=== PATIENT | female | born 1985 | race American Indian/Alaskan Native ===

== ENCOUNTER 2017-05-06 10:29 | Emergency (ER) | payer OTHER ==
[2017-05-06 11:34] VITALS: BP 146/76
--- NOTE | 2017-05-06 14:13 | XRay Report ---
ROUTINE CHEST, TWO VIEWS: HISTORY: Dyspnea. The trachea, heart, mediastinal contour, lung mckeon and bony thorax are unremarkable. IMPRESSION: Unremarkable chest x-ray.
[2017-05-06] MEDS ORDERED: TORADOL IM ONE (14:34)
[2017-05-06] MEDS ORDERED: TESSALON PERLES PO ONE (14:34)
[2017-05-06] MEDS ORDERED: MUCINEX ER PO ONE (14:34)
--- NOTE | 2017-05-06 14:45 | Emergency Department Report ---
HPI - General Chief Complaint: Upper Respiratory Infection Time Seen by Provider: 05/06/17 13:27 - HPI HPI: The patient is a 32-year-old female who presents for evaluation of cough. The patient reports cough for the past 4 days, productive, moderate severity, associated with generalized myalgias for the past 3 days, aching in quality, moderate in severity, exacerbated with coughing, improved with rest. The patient denies fever, headache, neck pain, paresthesias, focal motor weakness, blurry vision, ear pain, tinnitus, chest pain, hemoptysis, dyspnea, abdominal pain, confusion or altered mental status, or recent URI or diarrhea. ED Past Medical Hx - Past Medical History Previous Medical History?: Yes Hx Hypertension: Yes (after childbirth. No meds) - Surgical History Past Surgical History?: Yes Additional Surgical History: HERNIA REPAIR. RIGHT EAR-KELOID REMOVED. C- SECTION - Social History Smoking Status: Never Smoker Substance Use Type: Non Opiate Pain, Other - Medications Home Medications: Home Medications Medication Instructions Recorded Confirmed Last Taken Type Ibuprofen [Motrin] 800 mg PO Q8HR PRN #15 tablet 05/06/17 Unknown Rx Ondansetron [Zofran TAB] 4 mg PO Q8HR PRN #15 tablet 05/06/17 Unknown Rx Oseltamivir [Tamiflu] 75 mg PO BID #10 cap 05/06/17 Unknown Rx Phenylephrine/Dm/Acetaminop/GG 20 ml PO Q4HR PRN #180 liquid 05/06/17 Unknown Rx [Mucinex Xlex-Hzt-Qetaluktpe Lq] ED Review of Systems ROS: Stated complaint: COLD SX Other details as noted in HPI Constitutional: denies: fever ENT: denies: throat or neck pain Respiratory: denies: cough, shortness of breath Cardiovascular: denies: chest pain Endocrine: denies unexplained weight loss or gain Gastrointestinal: denies: abdominal pain, nausea Genitourinary: denies: dysuria Musculoskeletal: reports generalized myalgias denies: leg swelling Skin: denies: rash Neurological: denies: headache Hematological/Lymphatic: denies: easy bleeding or easy bruising Psych: denies sadness or hopelessness Physical Exam - Physical Exam Vital Signs: Vital Signs 05/06/17 11:30 Temperature 98.8 F Pulse Rate 89 Respiratory 20 Rate Blood Pressure 146/76 O2 Sat by Pulse 100 Oximetry Physical Exam: General: well-nourished, well-developed, no acute distress Head: Normocephalic, atraumatic Eyes: normal sclera ENT: Mucous membranes are pink and moist, bilateral nasal congestion present Neck: trachea midline, neck supple, No neck stiffness, no cervical adenopathy Respiratory: Breath sounds equal bilaterally, no wheezing, rales, or rhonchi Cardio: S1 and S2 present, no murmurs, rubs, gallops, capillary refill is brisk Abdomen: Normoactive bowel sounds, soft abdomen, no rigidity, no guarding or rebound tenderness Chest WALL/Back: No tenderness to palpation of the chest wall, no CVA tenderness with percussion Musc: No pitting edema Skin: No rash Neuro: no facial drooping, normal speech Psych: Normal affect ED Course Vital Signs 05/06/17 11:30 Temperature 98.8 F Pulse Rate 89 Respiratory 20 Rate Blood Pressure 146/76 O2 Sat by Pulse 100 Oximetry ED Medical Decision Making - Medical Decision Making The patient was seen and examined by myself. The patient is placed on a monitoring manager and continuous pulse ox. On initial evaluation, the patient was found to be in no distress. Evaluation orders were placed. EKG was negative for findings suggestive of acute cardiac infarct. The patient is given Tessalon Perles for their cough and Mucinex for nasal congestion, and I'm dose of Toradol for her pain. Lab results were not concerning. Chest x-ray is negative for pulmonary vessel congestion, pleural effusion, focal consolidation , or other acute cardio pulmonary disease process. The patient was reevaluated and reported that their symptoms were markedly improved. On reexamination the patient is found to have normal respiratory rate and O2 sat on pulse oximetry, with no costal retractions or diminishment of breath sounds on auscultation. The patient is stable for discharge with outpatient follow-up. The patient is given follow-up and return instructions. The patient expressed understanding and agreed with the plan. The patient is discharged in stable condition. Critical care attestation.: If time is entered above; I have spent that time in minutes in the direct care of this critically ill patient, excluding procedure time. ED Disposition Clinical Impression: Influenza, Myalgia Acute bronchitis Qualifiers: Bronchitis organism: unspecified organism Qualified Code(s): J20.9 - Acute bronchitis, unspecified Disposition: DC-01 TO HOME OR SELFCARE Is pt being admited?: No Does the pt Need Aspirin: No Condition: Stable Instructions: Acute Bronchitis (ED), Influenza (ED), Musculoskeletal Pain (ED) Prescriptions: Ibuprofen [Motrin] 800 mg PO Q8HR PRN #15 tablet PRN Reason: Pain Ondansetron [Zofran TAB] 4 mg PO Q8HR PRN #15 tablet PRN Reason: Nausea Oseltamivir [Tamiflu] 75 mg PO BID #10 cap Phenylephrine/Dm/Acetaminop/GG [Mucinex Xkbb-Upx-Ezpllcmmld Lq] 20 ml PO Q4HR PRN #180 liquid PRN Reason: cough and sore throat Referrals: PRIMARY CARE, [Primary Care Provider] - 3-5 Days Time of Disposition: 14:40
== END 2017-05-06 14:58 | disposition home or self-care (01) ==
LOC: ED 10:29
DX: J11.1 Influenza due to unidentified influenza virus with other respiratory manifestations (principal); J20.9 Acute bronchitis, unspecified; I10 Essential (primary) hypertension
CPT/HCPCS: 71046; 96372; 99284; J1885

== ENCOUNTER 2017-09-01 07:03 | Emergency (ER) | payer OTHER ==
[2017-09-01 08:13] VITALS: BP 128/70
--- NOTE | 2017-09-01 11:54 | Emergency Department Report ---
ED ENT HPI - General Chief complaint: Earache Stated complaint: LEFT EAR PAIN Time Seen by Provider: 09/01/17 11:50 Source: patient Mode of arrival: Ambulatory Limitations: No Limitations - History of Present Illness Initial comments: 32-year-old female past medical history hypertension presents with complaint of 2 days of left-sided earache. Denies fevers chills nausea vomiting sore throat. Denies any discharge from left ear. States it started 2 days ago and it is aching persistently. Awake alert oriented 3 speaking in full sentences. Nontoxic. MD complaint: ear pain Onset/Timin -: days(s) Location: L ear Severity: moderate Severity scale (0 -10): 6 Quality: aching Consistency: constant Improves with: none - Related Data Previous Rx's Medication Instructions Recorded Last Taken Type Ibuprofen [Motrin] 800 mg PO Q8HR PRN #15 tablet 05/06/17 Unknown Rx Ondansetron [Zofran TAB] 4 mg PO Q8HR PRN #15 tablet 05/06/17 Unknown Rx Oseltamivir [Tamiflu] 75 mg PO BID #10 cap 05/06/17 Unknown Rx Phenylephrine/Dm/Acetaminop/GG 20 ml PO Q4HR PRN #180 liquid 05/06/17 Unknown Rx [Mucinex Ecef-Cgo-Hanhulllva Lq] Acetaminophen/Codeine [Tylenol 1 tab PO Q6H PRN #5 tab 09/01/17 Unknown Rx /Codeine # 3 tab] Amoxicillin [Trimox CAP] 500 mg PO Q8H #21 capsule 09/01/17 Unknown Rx Ibuprofen [Motrin] 800 mg PO Q8HR PRN #20 tablet 09/01/17 Unknown Rx Neomy/Polymyx B/Hc (Otic) Soln 4 drops OTIC TID #1 bottle 09/01/17 Unknown Rx [Cortisporin (Otic) Soln] Allergies Allergy/AdvReac Type Severity Reaction Status Date / Time No Known Allergies Allergy Verified 05/14/15 15:43 ED Dental HPI - General Chief complaint: Earache Stated complaint: LEFT EAR PAIN Time Seen by Provider: 09/01/17 11:50 Source: patient Mode of arrival: Ambulatory Limitations: No Limitations - Related Data Previous Rx's Medication Instructions Recorded Last Taken Type Ibuprofen [Motrin] 800 mg PO Q8HR PRN #15 tablet 05/06/17 Unknown Rx Ondansetron [Zofran TAB] 4 mg PO Q8HR PRN #15 tablet 05/06/17 Unknown Rx Oseltamivir [Tamiflu] 75 mg PO BID #10 cap 05/06/17 Unknown Rx Phenylephrine/Dm/Acetaminop/GG 20 ml PO Q4HR PRN #180 liquid 05/06/17 Unknown Rx [Mucinex Yond-Zmv-Isvncuiaar Lq] Acetaminophen/Codeine [Tylenol 1 tab PO Q6H PRN #5 tab 09/01/17 Unknown Rx /Codeine # 3 tab] Amoxicillin [Trimox CAP] 500 mg PO Q8H #21 capsule 09/01/17 Unknown Rx Ibuprofen [Motrin] 800 mg PO Q8HR PRN #20 tablet 09/01/17 Unknown Rx Neomy/Polymyx B/Hc (Otic) Soln 4 drops OTIC TID #1 bottle 09/01/17 Unknown Rx [Cortisporin (Otic) Soln] Allergies Allergy/AdvReac Type Severity Reaction Status Date / Time No Known Allergies Allergy Verified 05/14/15 15:43 ED Review of Systems ROS: Stated complaint: LEFT EAR PAIN Other details as noted in HPI Constitutional: denies: chills, fever Eyes: denies: eye pain, eye discharge, vision change ENT: denies: ear pain, throat pain Respiratory: denies: cough, shortness of breath, wheezing Cardiovascular: denies: chest pain, palpitations Endocrine: no symptoms reported Gastrointestinal: denies: abdominal pain, nausea, diarrhea Genitourinary: denies: urgency, dysuria, discharge Musculoskeletal: denies: back pain, joint swelling, arthralgia Skin: denies: rash, lesions Neurological: denies: headache, weakness, paresthesias Psychiatric: denies: anxiety, depression Hematological/Lymphatic: denies: easy bleeding, easy bruising ED Past Medical Hx - Past Medical History Previous Medical History?: Yes Hx Hypertension: Yes (after childbirth. No meds) - Surgical History Past Surgical History?: Yes Additional Surgical History: HERNIA REPAIR. RIGHT EAR-KELOID REMOVED. C- SECTION - Social History Smoking Status: Never Smoker Substance Use Type: Non Opiate Pain - Medications Home Medications: Home Medications Medication Instructions Recorded Confirmed Last Taken Type Ibuprofen [Motrin] 800 mg PO Q8HR PRN #15 tablet 05/06/17 Unknown Rx Ondansetron [Zofran TAB] 4 mg PO Q8HR PRN #15 tablet 05/06/17 Unknown Rx Oseltamivir [Tamiflu] 75 mg PO BID #10 cap 05/06/17 Unknown Rx Phenylephrine/Dm/Acetaminop/GG 20 ml PO Q4HR PRN #180 liquid 05/06/17 Unknown Rx [Mucinex Fnls-Bdl-Vdcwbgiqpm Lq] Acetaminophen/Codeine [Tylenol 1 tab PO Q6H PRN #5 tab 09/01/17 Unknown Rx /Codeine # 3 tab] Amoxicillin [Trimox CAP] 500 mg PO Q8H #21 capsule 09/01/17 Unknown Rx Ibuprofen [Motrin] 800 mg PO Q8HR PRN #20 tablet 09/01/17 Unknown Rx Neomy/Polymyx B/Hc (Otic) Soln 4 drops OTIC TID #1 bottle 09/01/17 Unknown Rx [Cortisporin (Otic) Soln] ED Physical Exam - General Limitations: No Limitations General appearance: alert, in no apparent distress - Head Head exam: Present: atraumatic, normocephalic - Eye Eye exam: Present: normal appearance, PERRL, EOMI - ENT ENT exam: Present: mucous membranes moist - Expanded ENT Exam Expanded TM/Canal exam: Erythema: Left TM (left tympanic membrane injection with surrounding erythema and inflammation left external ear canal. No mastoid tenderness on exam), Bulging: Left TM - Neck Neck exam: Present: normal inspection, full ROM - Respiratory Respiratory exam: Present: normal lung sounds bilaterally. Absent: respiratory distress - Cardiovascular Cardiovascular Exam: Present: regular rate, normal rhythm. Absent: systolic murmur, diastolic murmur, rubs, gallop - GI/Abdominal GI/Abdominal exam: Present: soft, normal bowel sounds - Extremities Exam Extremities exam: Present: normal inspection - Back Exam Back exam: Present: normal inspection - Neurological Exam Neurological exam: Present: alert, oriented X3 - Psychiatric Psychiatric exam: Present: normal affect, normal mood - Skin Skin exam: Present: warm, dry, intact, normal color. Absent: rash ED Course Vital Signs 09/01/17 08:10 Temperature 98.8 F Pulse Rate 80 Respiratory 20 Rate Blood Pressure 128/70 O2 Sat by Pulse 100 Oximetry ED Medical Decision Making - Medical Decision Making A/P: Left-sided otitis media, possible early otitis 1-course of amoxicillin 2-Motrin 800 when necessary, Tylenol 3 3-Cortisporin eardrops 4- follow up with primary care doctor Critical care attestation.: If time is entered above; I have spent that time in minutes in the direct care of this critically ill patient, excluding procedure time. ED Disposition Clinical Impression: Otitis media Qualifiers: Otitis media type: suppurative Chronicity: acute Laterality: left Recurrence: not specified as recurrent Spontaneous tympanic membrane rupture: without spontaneous rupture Qualified Code(s): H66.002 - Acute suppurative otitis media without spontaneous rupture of ear drum, left ear Disposition: TO HOME OR SELFCARE Is pt being admited?: No Does the pt Need Aspirin: No Condition: Stable Instructions: Otitis Media (ED) Prescriptions: Acetaminophen/Codeine [Tylenol /Codeine # 3 tab] 1 tab PO Q6H PRN #5 tab PRN Reason: Pain Amoxicillin [Trimox CAP] 500 mg PO Q8H #21 capsule Ibuprofen [Motrin] 800 mg PO Q8HR PRN #20 tablet PRN Reason: Pain Neomy/Polymyx B/Hc (Otic) Soln [Cortisporin (Otic) Soln] 4 drops OTIC TID #1 bottle Referrals: [facility] [Provider Group] - 3-5 Days Forms: Work/School Release Form(ED) Time of Disposition: 11:53
== END 2017-09-01 12:07 | disposition home or self-care (01) ==
LOC: ED 07:03
DX: H66.002 Acute suppurative otitis media without spontaneous rupture of ear drum, left ear (principal)
CPT/HCPCS: 99282

== ENCOUNTER 2018-11-01 12:58 | Emergency (ER) | payer MEDICAID, OTHER ==
--- NOTE | 2018-11-01 14:18 | Event Note ---
ED Screening Note Date of service: 11/01/18 Time: 14:14 ED Screening Note: 33 y/o female comes in for rt foot swelling and painfull time 1 week. This initial assessment/diagnostic orders/clinical plan/treatment(s) is/are subject to change based on patients health status, clinical progression and re- assessment by fellow clinical providers in the ED. Further treatment and workup at subsequent clinical providers discretion. Patient/guardian urged not to elope from the ED as their condition may be serious if not clinically assessed and managed. Initial orders include:
--- NOTE | 2018-11-01 15:37 | XRay Report ---
RIGHT FOOT 2 VIEWS INDICATION / CLINICAL INFORMATION: rt foot pain and swelling. COMPARISON: None available. FINDINGS: Mild soft tissue swelling is seen along the dorsal aspect of right foot without fracture or dislocati on. Signer Name: Fletcher Edouard MD Signed: 11/01/2018 3:33 PM Workstation Name: [id number]
--- NOTE | 2018-11-01 16:20 | Vascular Lab Report ---
DUPLEX DOPPLER LOWER EXTREMITY VEINS, RIGHT INDICATION: Right lower extremity pain and swelling for one week. TECHNIQUE: Duplex doppler imaging was performed through the veins of the right lower extremity using venous compression and other maneuvers. COMPARISON: No relevant prior imaging study available. FINDINGS: Right Common femoral vein: Negative. Right Superficial femoral vein: Negative. Right Popliteal vein: Negative. Right Calf veins: Negative. Additional findings: None.. IMPRESSION: No sonographic evidence for DVT in the right lower extremity. Signer Name: Deondre Lobato Jr, MD Signed: 11/01/2018 4:16 PM Workstation Name: [id number]
[2018-11-01 16:21] LABS: Basophils % (Auto) 0.4 % (0.0-1.8); Eosinophils # (Auto) 0.5 K/mm3 (0.0-0.4); Eosinophils % (Auto) 5.7 % (0.0-4.3); Hematocrit 37.8 % (30.3-42.9); Hemoglobin 13.2 gm/dl (10.1-14.3); Lymphocytes # (Auto) 1.8 K/mm3 (1.2-5.4); Lymphocytes % (Auto) 19.7 % (13.4-35.0); Mean Corpuscular HGB Conc 35 % (30-34); Mean Corpuscular Volume 86 fl (79-97); Monocytes # (Auto) 0.6 K/mm3 (0.0-0.8); Monocytes % (Auto) 6.2 % (0.0-7.3); Platelet Count 273 K/mm3 (140-440); Red Cell Distribution Width 14.5 % (13.2-15.2)
--- NOTE | 2018-11-01 16:26 | Emergency Department Report ---
<PATRICIO QUIROZ - Last Filed: 11/01/18 16:23> ED General Adult HPI - General Chief complaint: Extremity Problem,Nontraumatic Stated complaint: RT FOOT SWELLING/HBP Time Seen by Provider: 11/01/18 15:08 Source: patient Mode of arrival: Ambulatory Limitations: No Limitations - History of Present Illness Initial comments: Patient presents to the emergency department with a chief complaint of right foot swelling and slightly more strongly swelling 1 week. Patient denies any injury to that leg and denies a history of congestive heart failure or lymphedema. Patient denies any pain in the lower extremity. Patient denies chest pain, shortness of breath, or abdominal pain. Patient has tried elevation of the right lower extremity for relief of the swelling to no avail. Patient states she has a job that requires her to sit for hours at a time. -: Gradual Location: lower extremity Severity scale (0 -10): 0 Consistency: constant Improves with: none Worsens with: none Associated Symptoms: denies other symptoms Treatments Prior to Arrival: none - Related Data Previous Rx's Medication Instructions Recorded Last Taken Type predniSONE [Deltasone] 20 mg PO DAILY #5 tablet 11/01/18 Unknown Rx Allergies Allergy/AdvReac Type Severity Reaction Status Date / Time No Known Allergies Allergy Verified 05/14/15 15:43 ED Review of Systems Constitutional: denies: chills, fever Eyes: denies: eye pain, eye discharge, vision change ENT: denies: ear pain, throat pain Respiratory: denies: cough, shortness of breath, wheezing Cardiovascular: denies: chest pain, palpitations Endocrine: no symptoms reported Gastrointestinal: denies: abdominal pain, nausea, diarrhea Genitourinary: denies: urgency, dysuria, discharge Musculoskeletal: denies: back pain, joint swelling, arthralgia Skin: denies: rash, lesions Neurological: denies: headache, weakness, paresthesias Psychiatric: denies: anxiety, depression Hematological/Lymphatic: denies: easy bleeding, easy bruising ED Past Medical Hx - Past Medical History Hx Hypertension: Yes (after childbirth. No meds) - Surgical History Additional Surgical History: HERNIA REPAIR. RIGHT EAR-KELOID REMOVED. C- SECTION - Social History Smoking Status: Never Smoker Substance Use Type: None - Medications Home Medications: Home Medications Medication Instructions Recorded Confirmed Last Taken Type predniSONE [Deltasone] 20 mg PO DAILY #5 tablet 11/01/18 Unknown Rx ED Physical Exam - General Limitations: No Limitations General appearance: alert, in no apparent distress - Head Head exam: Present: atraumatic, normocephalic - Eye Eye exam: Present: normal appearance, PERRL - ENT ENT exam: Present: mucous membranes moist - Neck Neck exam: Present: normal inspection - Respiratory Respiratory exam: Present: normal lung sounds bilaterally. Absent: respiratory distress - Cardiovascular Cardiovascular Exam: Present: regular rate, normal rhythm. Absent: systolic murmur, diastolic murmur, rubs, gallop - GI/Abdominal GI/Abdominal exam: Present: soft, normal bowel sounds. Absent: distended, tenderness - Extremities Exam Extremities exam: Present: pedal edema, other (right lower extremity with mild edema and swelling ) - Back Exam Back exam: Present: normal inspection - Neurological Exam Neurological exam: Present: alert, oriented X3 - Psychiatric Psychiatric exam: Present: normal affect, normal mood - Skin Skin exam: Present: warm, dry, intact, normal color. Absent: rash ED Medical Decision Making - Lab Data Result diagrams: 11/01/18 16:06 ED Disposition Clinical Impression: Foot pain Disposition: DC-01 TO HOME OR SELFCARE Condition: Stable Instructions: Musculoskeletal Pain (ED) Additional Instructions: warm compresses meds as ordered diet and activity as tolerated follow up with pcp as we discussed referral below Referrals: BIGG EUCEDA MD [Staff Physician] - 3-5 Days <SANDIE LEE - Last Filed: 11/01/18 16:52> ED Review of Systems ROS: Stated complaint: RT FOOT SWELLING/HBP Other details as noted in HPI Comment: All other systems reviewed and negative ED Past Medical Hx - Family History Family history: no significant ED Course Vital Signs 11/01/18 14:03 Temperature 97.9 F Pulse Rate 73 Respiratory 16 Rate Blood Pressure 147/75 O2 Sat by Pulse 100 Oximetry ED Medical Decision Making - Lab Data Result diagrams: 11/01/18 16:06 11/01/18 16:06 - Medical Decision Making xray neg us neg labs noted fam hx gout no known trauma discussed findings with pt will dc home with pain medications and pcp follow up. verbalizes understanding of dc plan of care. Vital Signs 11/01/18 14:03 Temperature 97.9 F Pulse Rate 73 Respiratory 16 Rate Blood Pressure 147/75 O2 Sat by Pulse 100 Oximetry Labs 11/01/18 11/01/18 16:06 16:06 WBC 9.1 RBC 4.40 Hgb 13.2 Hct 37.8 MCV 86 MCH 30 MCHC 35 H RDW 14.5 Plt Count 273 Lymph % (Auto) 19.7 [place] % (Auto) 6.2 Eos % (Auto) 5.7 H Baso % (Auto) 0.4 Lymph # 1.8 [place] # 0.6 Eos # 0.5 H Baso # 0.0 Seg Neutrophils % 68.0 Seg Neutrophils # 6.2 Sodium 138 Potassium 3.8 Chloride 102.3 Carbon Dioxide 23 Anion Gap 17 BUN 9 Creatinine 0.7 Estimated GFR > 60 BUN/Creatinine Ratio 13 Glucose 85 Calcium 9.1 - Differential Diagnosis ro fx/ dvt Critical care attestation.: If time is entered above; I have spent that time in minutes in the direct care of this critically ill patient, excluding procedure time. ED Disposition Is pt being admited?: No Does the pt Need Aspirin: No Time of Disposition: 16:50
[2018-11-01 16:42] LABS: BUN/Creatinine Ratio 13; Blood Urea Nitrogen 9 mg/dL (7-17); Calcium 9.1 mg/dL (8.4-10.2); Hemolysis Index 14
[2018-11-01 17:10] VITALS: BP 145/83
== END 2018-11-01 17:11 | disposition home or self-care (01) ==
LOC: ED 12:58
DX: R60.0 Localized edema (principal); M79.671 Pain in right foot; R22.41 Localized swelling, mass and lump, right lower limb
CPT/HCPCS: 36415; 80048; 83880; 85025

== ENCOUNTER 2018-12-24 17:01 | Emergency (ER) | payer MEDICAID ==
--- NOTE | 2018-12-24 17:24 | Event Note ---
ED Screening Note Date of service: 12/24/18 Time: 17:21 ED Screening Note: This is a 33 y.o. F. that presents to the ER with diffuse abdominal pain for 5 days. Reports 2 episodes of vomiting. - diarrhea, fever, urinary frequency, dysuria, or urgency Took tums, gas x, and pepto bismol. PMH GERD and asthma This initial assessment/diagnostic orders/clinical plan/treatment(s) is/are subject to change based on patients health status, clinical progression and re- assessment by fellow clinical providers in the ED. Further treatment and workup at subsequent clinical providers discretion. Patient/guardian urged not to elope from the ED as their condition may be serious if not clinically assessed and managed. Initial orders include: Labs
[2018-12-24 18:00] LABS: HCG Qualitative,Urine Negative (Negative)
[2018-12-24] MEDS ORDERED: ONDANSETRON 4 MG ODT TAB PO ONE (18:03)
[2018-12-24] MEDS ORDERED: ALUM-MAG HYDROXIDE-SIMETHICONE 200-200-20MG/5ML ORAL LIQD 30 ML PO ONE (18:03)
[2018-12-24] MEDS ORDERED: LIDOCAINE VISCOUS 2% 15 ML ORAL LIQD PO ONE (18:03)
[2018-12-24] MEDS ORDERED: DICYCLOMINE 20 MG TAB PO ONE (18:03)
[2018-12-24 18:04] LABS: Bacteria,Urine 1+ /HPF (Negative); Bilirubin,Urine NEG (Negative); Blood,Urine SM (Negative); Color,Urine Yellow (Yellow); Mucus,Urine 3+ /HPF; Urobilinogen,Urine < 2.0 mg/dL (<2.0)
[2018-12-24 19:31] LABS: Hematocrit 42.2 % (30.3-42.9); Hemoglobin 13.6 gm/dl (10.1-14.3); Mean Corpuscular HGB Conc 32 % (30-34); Mean Corpuscular Volume 86 fl (79-97); Platelet Count 287 K/mm3 (140-440); Red Blood Count 4.92 M/mm3 (3.65-5.03); Red Cell Distribution Width 15.4 % (13.2-15.2)
[2018-12-24 19:54] LABS: Alanine Aminotransferase 10 units/L (7-56); Albumin 4.3 g/dL (3.9-5); BUN/Creatinine Ratio 15; Blood Urea Nitrogen 12 mg/dL (7-17); Hemolysis Index 9
[2018-12-24 20:03] LABS: Basophils % (Manual) 0 % (0.0-1.8); Eosinophils % (Manual) 0 % (0.0-4.3); Total Cells Counted 100
[2018-12-24 20:04] LABS: Anisocytosis Few
[2018-12-24] MEDS ORDERED: ALBUTEROL 2.5 MG/3 ML NEBU IH ONE (20:10)
[2018-12-24] MEDS ORDERED: SODIUM CHLORIDE 0.9% 1000 ML 1,000 ML IV ONE (20:11)
[2018-12-24] MEDS ORDERED: ONDANSETRON 4 MG/2 ML INJ IV ONE (20:11)
[2018-12-24] MEDS ORDERED: PANTOPRAZOLE 40 MG INJ IV ONE (20:11)
[2018-12-24] MEDS ORDERED: MORPHINE 2 MG/1 ML INJ IV ONE (20:11)
--- NOTE | 2018-12-24 20:59 | Emergency Department Report ---
ED Abdominal Pain HPI - General Chief Complaint: Abdominal Pain Stated Complaint: N/V/STOMACH PAIN/WEAK Time Seen by Provider: 12/24/18 17:20 Source: patient Mode of arrival: Ambulatory Limitations: No Limitations - History of Present Illness Initial Comments: Patient is a 33-year-old female who presents to emergency room with complaints of upper abdominal pain that began 5 days ago. She states it feels like intermittent sharp pain. Patient states that she also has a burning sensation. She states that today she began to have nausea and 2 episodes of vomiting. She denies any diarrhea, fever, chills, vaginal discharge. She states that she attempted to take Gas-X and Pepto-Bismol without much relief. States she had a normal bowel movement 2 days ago. past medical history of GERD. Denies any allergies to medications. - Related Data Previous Rx's Medication Instructions Recorded Last Taken Type predniSONE [Deltasone] 20 mg PO DAILY #5 tablet 11/01/18 Unknown Rx Omeprazole 40 mg PO DAILY #30 capsule. 12/24/18 Unknown Rx Ondansetron [Zofran Odt] 4 mg PO Q8HR PRN #14 tab.rapdis 12/24/18 Unknown Rx Sucralfate [Carafate] 1 gm PO ACHS 7 Days #21 tablet 12/24/18 Unknown Rx Allergies Allergy/AdvReac Type Severity Reaction Status Date / Time No Known Allergies Allergy Verified 05/14/15 15:43 ED Review of Systems ROS: Stated complaint: N/V/STOMACH PAIN/WEAK Other details as noted in HPI Comment: All other systems reviewed and negative ED Past Medical Hx - Past Medical History Previous Medical History?: No Hx Hypertension: Yes (after childbirth. No meds) - Surgical History Past Surgical History?: Yes Additional Surgical History: HERNIA REPAIR. RIGHT EAR-KELOID REMOVED. C- SECTION - Social History Smoking Status: Never Smoker Substance Use Type: None - Medications Home Medications: Home Medications Medication Instructions Recorded Confirmed Last Taken Type predniSONE [Deltasone] 20 mg PO DAILY #5 tablet 11/01/18 Unknown Rx Omeprazole 40 mg PO DAILY #30 capsule. 12/24/18 Unknown Rx Ondansetron [Zofran Odt] 4 mg PO Q8HR PRN #14 tab.rapdis 12/24/18 Unknown Rx Sucralfate [Carafate] 1 gm PO ACHS 7 Days #21 tablet 12/24/18 Unknown Rx ED Physical Exam - General Limitations: No Limitations General appearance: alert, in no apparent distress - Head Head exam: Present: atraumatic, normocephalic - Eye Eye exam: Present: normal appearance - ENT ENT exam: Present: mucous membranes moist - Respiratory Respiratory exam: Present: normal lung sounds bilaterally. Absent: respiratory distress, wheezes, rales, rhonchi, stridor, chest wall tenderness, accessory muscle use, decreased breath sounds, prolonged expiratory - Cardiovascular Cardiovascular Exam: Present: regular rate, normal rhythm, normal heart sounds. Absent: systolic murmur, diastolic murmur, rubs, gallop - GI/Abdominal GI/Abdominal exam: Present: soft, tenderness (epigastric), normal bowel sounds. Absent: distended, guarding, rebound, rigid - Back Exam Back exam: Absent: CVA tenderness (R), CVA tenderness (L) - Neurological Exam Neurological exam: Present: alert, oriented X3 - Psychiatric Psychiatric exam: Present: normal affect, normal mood - Skin Skin exam: Present: warm, dry, intact ED Course Vital Signs 12/24/18 12/24/18 12/24/18 17:21 21:00 22:23 Temperature 97.6 F Pulse Rate 78 78 Respiratory 20 16 16 Rate Blood Pressure 139/84 132/75 [Left] O2 Sat by Pulse 98 99 Oximetry ED Medical Decision Making - Lab Data Result diagrams: 12/24/18 19:12 12/24/18 19:12 - Radiology Data Radiology results: report reviewed CT of the abdomen and pelvis with intravenous contrast. INDICATION / CLINICAL INFORMATION: Abdominal and epigastric pain with nausea and vomiting. Elevated white blood cell count. TECHNIQUE: The patient received 100 cc Omnipaque [address] scans at this location are performed using CT dose reduction for ALARA by means of automated exposure control. COMPARISON: None available. FINDINGS: ABDOMEN: There is mild diffuse bowel wall thickening/submucosal edema involving the mid to distal stomach. I do not identify a mass or ulcer. There is no evidence of bowel obstruction or free air. The liver, spleen, gallbladder, bile ducts, pancreas, adrenal glands, and kidneys demonstrate no significant abnormality. No adenopathy is seen. The lung bases are clear. PELVIS: The distal ureters and urinary bladder are normal. The uterus and adnexal regions are unremarkable. A normal appendix is present and there is no evidence of diverticulitis. There is a small fat-containing periumbilical hernia without complication. No abnormal mass or fluid collection is seen. No acute osseous abnormality is identified. IMPRESSION: Mild diffuse wall thickening/submucosal edema involving the mid to distal stomach is characteristic of gastritis. I see no evidence of bowel obstruction or free air. Signer Name: Kashif Ambriz MD Signed: 12/24/2018 9:40 PM Workstation Name: [id number] Transcribed By: RT Dictated By: Kashif Ambriz MD Electronically Authenticated By: Kashif Ambriz MD Signed Date/Time: 12/24/18 4610 - Medical Decision Making Patient is a 33-year-old female who presents to emergency room with complaints of upper abdominal pain that began 5 days ago. She states it feels like intermittent sharp pain. Patient states that she also has a burning sensation. She states that today she began to have nausea and 2 episodes of vomiting. She denies any diarrhea, fever, chills, vaginal discharge. She states that she attempted to take Gas-X and Pepto-Bismol without much relief. States she had a normal bowel movement 2 days ago. past medical history of GERD. Denies any allergies to medications. VSS. on exam: epigastric abd tenderness, no guarding, no rebound, normal bowel sounds. labs significant for elevated WBC at 15,000. UA without evidence of UTI. CT abd pelvis with IV contrast: Mild diffuse wall thickening/submucosal edema involving the mid to distal stomach is characteristic of gastritis. I see no evidence of bowel obstruction or free air. pts discomfort and nausea treated while in the ED and symptoms improved. pt was able to tolerate PO intake. pt given prescription for zofran, carafate, and omeprazole. advised pt to please take medication as prescribed. increase your water intake. follow the diet for gastritis and acid reflux. Follow up with a GI doctor in the next 3-5 days. Return to the emergency room for any new or worsening symptoms. - Differential Diagnosis PUD, gastritis, GERD, pancreatitis, cholecystitis, cholelithiasis Critical care attestation.: If time is entered above; I have spent that time in minutes in the direct care of this critically ill patient, excluding procedure time. ED Disposition Clinical Impression: Upper abdominal pain Nausea & vomiting Qualifiers: Vomiting type: unspecified Vomiting Intractability: non-intractable Qualified Code(s): R11.2 - Nausea with vomiting, unspecified Gastritis Qualifiers: Gastritis type: unspecified gastritis Chronicity: acute Gastritis bleeding: without bleeding Qualified Code(s): K29.00 - Acute gastritis without bleeding Disposition: TO HOME OR SELFCARE Is pt being admited?: No Does the pt Need Aspirin: No Condition: Stable Instructions: Gastritis (ED), Diet for Ulcers and Gastritis (ED), Abdominal Pain (ED) Additional Instructions: Please take medication as prescribed. increase your water intake. follow the diet for gastritis and acid reflux. Follow up with a GI doctor in the next 3-5 days. Return to the emergency room for any new or worsening symptoms. Prescriptions: Sucralfate [Carafate] 1 gm PO ACHS 7 Days #21 tablet Omeprazole 40 mg PO DAILY #30 capsule. Ondansetron [Zofran Odt] 4 mg PO Q8HR PRN #14 tab.rapdis PRN Reason: Nausea And Vomiting Referrals: PRIMARY CARE, [Primary Care Provider] - 3-5 Days [facility] [Provider Group] - 3-5 Days Forms: Work/School Release Form(ED) Time of Disposition: 22:06 Print Language: HONG KONGER
--- NOTE | 2018-12-24 21:44 | Cat Scan Report ---
CT of the abdomen and pelvis with intravenous contrast. INDICATION / CLINICAL INFORMATION: Abdominal and epigastric pain with nausea and vomiting. Elevated white blood cell count. TECHNIQUE: The patient received 100 cc Omnipaque [address] scans at this location are performed using CT dose reduction for ALARA by means of automated exposure control. COMPARISON: None available. FINDINGS: ABDOMEN: There is mild diffuse bowel wall thickening/submucosal edema involving the mid to distal sto mach. I do not identify a mass or ulcer. There is no evidence of bowel obstruction or free air. The l iver, spleen, gallbladder, bile ducts, pancreas, adrenal glands, and kidneys demonstrate no significa nt abnormality. No adenopathy is seen. The lung bases are clear. PELVIS: The distal ureters and urinary bladder are normal. The uterus and adnexal regions are unremar kable. A normal appendix is present and there is no evidence of diverticulitis. There is a small fat- containing periumbilical hernia without complication. No abnormal mass or fluid collection is seen. N o acute osseous abnormality is identified. IMPRESSION: Mild diffuse wall thickening/submucosal edema involving the mid to distal stomach is marycruz acteristic of gastritis. I see no evidence of bowel obstruction or free air. Signer Name: Kashif Ambriz MD Signed: 12/24/2018 9:40 PM Workstation Name: [id number]
[2018-12-24 22:24] VITALS: BP 132/75
== END 2018-12-24 22:44 | disposition home or self-care (01) ==
LOC: ED 17:01
DX: K29.70 Gastritis, unspecified, without bleeding (principal); I10 Essential (primary) hypertension; Z87.19 Personal history of other diseases of the digestive system; Z79.899 Other long term (current) drug therapy
CPT/HCPCS: 36415; 74177; 80053; 81001; 81025; 83690; 85007; 85025; 96361; 96374; 96375; 99284; C9113; J2270; J2405; J7030; Q9967; Q0162

== ENCOUNTER 2021-11-16 08:57 | Emergency (ER) | payer MEDICAID ==
[2021-11-16] MEDS ORDERED: ACETAMINOPHEN W/CODEINE 300-30 MG TAB PO ONE (16:06)
[2021-11-16] MEDS ORDERED: KETOROLAC 10 MG TAB PO ONE (16:06)
[2021-11-16] MEDS ORDERED: dexAMETHasone 4 MG/ML VIAL PO ONE (16:07)
--- NOTE | 2021-11-16 17:13 | Emergency Department Report ---
ED ENT HPI - General Chief complaint: Upper Respiratory Infection Stated complaint: COVID+ SOB/BODY PAIN Time Seen by Provider: 11/16/21 15:33 Source: patient Mode of arrival: Ambulatory Limitations: No Limitations - History of Present Illness Initial comments: 36-year-old black female with no past medical history presents to the emergency department for evaluation of headache, fever, body aches, and shortness of breath. She states that she took a home COVID test yesterday and it was positive. MD complaint: other (Headache, body aches, fever, and shortness of breath) -: Gradual, days(s) (1) Location: other (Generalized body aches) Severity: severe Severity scale (0 -10): 10 Quality: aching Consistency: constant Associated Symptoms: fever, cough, rhinorrhea. denies: gum swelling, toothache, pain with swallowing, sore throat, tinnitus, hearing loss, discharge from ear - Related Data Previous Rx's Medication Instructions Recorded Last Taken Type predniSONE [Deltasone] 20 mg PO DAILY #5 tablet 11/01/18 Unknown Rx Omeprazole 40 mg PO DAILY #30 capsule.dr 12/24/18 Unknown Rx Ondansetron [Zofran Odt] 4 mg PO Q8HR PRN #14 tab.rapdis 12/24/18 Unknown Rx Sucralfate [Carafate] 1 gm PO ACHS 7 Days #21 tablet 12/24/18 Unknown Rx Benzonatate [Tessalon Perles] 100 mg PO Q8HR PRN #30 cap 11/16/21 Unknown Rx Dexamethasone [Decadron] 6 mg PO DAILY #10 tab 11/16/21 Unknown Rx Ketorolac [Toradol] 10 mg PO Q6H PRN #12 tab 11/16/21 Unknown Rx guaiFENesin/CODEINE [Robitussin AC] 10 ml PO TID PRN #120 ml 11/16/21 Unknown Rx Allergies Allergy/AdvReac Type Severity Reaction Status Date / Time No Known Allergies Allergy Verified 11/16/21 09:47 ED Dental HPI - General Chief complaint: Upper Respiratory Infection Stated complaint: COVID+ SOB/BODY PAIN Time Seen by Provider: 11/16/21 15:33 Source: patient Mode of arrival: Ambulatory Limitations: No Limitations - Related Data Previous Rx's Medication Instructions Recorded Last Taken Type predniSONE [Deltasone] 20 mg PO DAILY #5 tablet 11/01/18 Unknown Rx Omeprazole 40 mg PO DAILY #30 capsule. 12/24/18 Unknown Rx Ondansetron [Zofran Odt] 4 mg PO Q8HR PRN #14 tab.rapdis 12/24/18 Unknown Rx Sucralfate [Carafate] 1 gm PO ACHS 7 Days #21 tablet 12/24/18 Unknown Rx Benzonatate [Tessalon Perles] 100 mg PO Q8HR PRN #30 cap 11/16/21 Unknown Rx Dexamethasone [Decadron] 6 mg PO DAILY #10 tab 11/16/21 Unknown Rx Ketorolac [Toradol] 10 mg PO Q6H PRN #12 tab 11/16/21 Unknown Rx guaiFENesin/CODEINE [Robitussin AC] 10 ml PO TID PRN #120 ml 11/16/21 Unknown Rx Allergies Allergy/AdvReac Type Severity Reaction Status Date / Time No Known Allergies Allergy Verified 11/16/21 09:47 ED Review of Systems ROS: Stated complaint: COVID+ SOB/BODY PAIN Other details as noted in HPI Comment: All other systems reviewed and negative Constitutional: fever, malaise. denies: chills, weakness Eyes: denies: vision change ENT: congestion. denies: throat pain Respiratory: cough, shortness of breath. denies: SOB with exertion, SOB at rest, stridor, wheezing Cardiovascular: chest pain. denies: palpitations, dyspnea on exertion, orthopnea, edema, syncope, paroxysmal nocturnal dyspnea Gastrointestinal: denies: abdominal pain, nausea, vomiting Genitourinary: denies: urgency, dysuria Musculoskeletal: denies: back pain Neurological: headache. denies: weakness, numbness, paresthesias, confusion, abnormal gait, vertigo ED Past Medical Hx - Past Medical History Previous Medical History?: No Hx Hypertension: Yes (after childbirth. No meds) - Surgical History Past Surgical History?: No Additional Surgical History: HERNIA REPAIR. RIGHT EAR-KELOID REMOVED. C- SECTION - Social History Smoking Status: Never Smoker Substance Use Type: None - Medications Home Medications: Home Medications Medication Instructions Recorded Confirmed Last Taken Type predniSONE [Deltasone] 20 mg PO DAILY #5 tablet 11/01/18 Unknown Rx Omeprazole 40 mg PO DAILY #30 capsule. 12/24/18 Unknown Rx Ondansetron [Zofran Odt] 4 mg PO Q8HR PRN #14 tab.rapdis 12/24/18 Unknown Rx Sucralfate [Carafate] 1 gm PO ACHS 7 Days #21 tablet 12/24/18 Unknown Rx Benzonatate [Tessalon Perles] 100 mg PO Q8HR PRN #30 cap 11/16/21 Unknown Rx Dexamethasone [Decadron] 6 mg PO DAILY #10 tab 11/16/21 Unknown Rx Ketorolac [Toradol] 10 mg PO Q6H PRN #12 tab 11/16/21 Unknown Rx guaiFENesin/CODEINE [Robitussin AC] 10 ml PO TID PRN #120 ml 11/16/21 Unknown Rx ED Physical Exam - General Limitations: No Limitations General appearance: alert, in no apparent distress - Head Head exam: Present: atraumatic, normocephalic - Eye Eye exam: Present: normal appearance. Absent: conjunctival injection, periorbi perla swelling, periorbital tenderness - ENT ENT exam: Absent: normal exam (Bilateral nasal mucosal edema noted), normal orophraynx (Erythema noted to posterior oropharynx) - Neck Neck exam: Present: normal inspection, full ROM. Absent: tenderness, lymphadenopathy - Respiratory Respiratory exam: Present: normal lung sounds bilaterally, chest wall tenderness. Absent: respiratory distress, wheezes, rales, rhonchi, stridor - Cardiovascular Cardiovascular Exam: Present: regular rate, normal heart sounds - GI/Abdominal GI/Abdominal exam: Present: soft, normal bowel sounds. Absent: distended, tenderness, guarding, rebound, rigid - Extremities Exam Extremities exam: Present: normal inspection, normal capillary refill. Absent: tenderness, pedal edema, joint swelling, calf tenderness - Back Exam Back exam: Present: normal inspection. Absent: CVA tenderness (R), CVA tenderness (L) - Neurological Exam Neurological exam: Present: alert, oriented X3 - Psychiatric Psychiatric exam: Present: normal affect, normal mood - Skin Skin exam: Present: warm, dry, intact, normal color ED Course Vital Signs 11/16/21 11/16/21 09:45 17:45 Temperature 99.1 F Pulse Rate 85 87 Respiratory 18 18 Rate Blood Pressure 125/66 129/82 [Left] O2 Sat by Pulse 99 100 Oximetry ED Medical Decision Making - Medical Decision Making 36-year-old black female with no past medical history presents to the emergency department for evaluation of headache, fever, body aches, and shortness of breath. She states that she took a home COVID test yesterday and it was positive. Physical exam unremarkable. Symptoms improved after medications. Patient will be discharged home with decadron, toradol, tessalone perles, and robitussin AC. She is advised to isolate for at least 5 days and follow up with pcp if no improvement or worsening symptoms and return to ed as needed. She verbalized understanding of and agreement with plan of care. Critical care attestation.: If time is entered above; I have spent that time in minutes in the direct care of this critically ill patient, excluding procedure time. ED Disposition Clinical Impression: Viral syndrome Disposition: HOME / SELF CARE / HOMELESS Is pt being admited?: No Does the pt Need Aspirin: No Condition: Stable Instructions: Viral Illness, Adult Additional Instructions: Take medications as prescribed. Isolate for at least 5 days per CDC recommendations. Follow-up with your primary care provider for further evaluation and management. Return to the emergency department as needed. Prescriptions: Dexamethasone [Decadron] 6 mg PO DAILY #10 tab guaiFENesin/CODEINE [Robitussin AC] 10 ml PO TID PRN #120 ml PRN Reason: Cough Benzonatate [Tessalon Perles] 100 mg PO Q8HR PRN #30 cap PRN Reason: Cough Ketorolac [Toradol] 10 mg PO Q6H PRN #12 tab PRN Reason: Pain Referrals: JACQUELINE CAMPBELL MD [Staff Physician] - 3-5 Days Forms: Work/School Release Form(ED) Time of Disposition: 17:18
[2021-11-16 17:46] VITALS: BP 129/82
== END 2021-11-16 17:34 | disposition home or self-care (01) ==
LOC: ED 08:57
DX: B34.9 Viral infection, unspecified (principal); I10 Essential (primary) hypertension
CPT/HCPCS: 99282; J1100